=== PATIENT | male | born 1990 | race Caucasian/White ===

== ENCOUNTER 2017-01-22 00:31 | Emergency (ER) | payer OTHER ==
[~2017-01-22] VITALS: Ht 172.7 cm; Wt 64.5 kg
[2017-01-22 00:38] VITALS: Ht 172.7 cm; Wt 64.5 kg
[2017-01-22] MEDS ORDERED: IBUP-1542 PO (03:01)
--- NOTE | 2017-01-22 03:07 | ERD ---
ER Documentation Chief Complaint Date/Time DATE: 01/22/17 TIME: 03:03 Chief Complaint r ring finger cut on knife in sink HPI This is a 18-year-old male presents to the ER after he cut his right ring finger with a knife earlier today while he was washing dishes. Patient states that around 11 PM he began to feel pain to his finger and is aware that he may need stitches. Patient denies any numbness or tingling to his fingers he does have a recent tetanus shot. Bleeding was controlled before arriving to the ER. ROS 12 point review of systems was done, all negative except per HPI. Medications Home Meds Active Scripts Ibuprofen* (Motrin*) 600 Mg Tab, 600 MG PO Q6, #30 TAB Prov:NUHA COLLIER Louise 01/22/17 Allergies Allergies: Coded Allergies: No Known Allergy (Unverified , 01/22/17) PMhx/Soc Medical and Surgical Hx: pt denies Medical Hx, pt denies Surgical Hx History of Surgery: No (DENIES MEDICAL AND SURGICAL HX.) Hx Alcohol Use: No Hx Substance Use: No Hx Tobacco Use: No Smoking Status: Never smoker Physical Exam Vitals Vital Signs Date Time Temp Pulse Resp B/P Pulse Ox O2 Delivery O2 Flow Rate FiO2 01/22/17 00:38 98.1 72 18 130/69 99 Physical Exam GENERAL: The patient is well developed and appropriate for usual state of health , in no apparent distress. HEENT: Atraumatic. . CHEST: Clear to auscultation bilaterally. There are no rales, wheezes or rhonchi. HEART: Regular rate and rhythm. No murmurs, clicks, rubs or gallops. EXTREMITIES: Right hand is without obvious asymmetry or deformity when compared to the left hand. There is no swelling, erythema or atrophy. There is a small 0.5 cm abrasion to the second distal finger. Normal extension and flexion of fingers. FDS and FDP are intact against resistance. No focal fullness, throbbing pain, swelling of fingertips. Patient not tender to palpation to the MCP, DIP, or PIP joint of the 2nd digit. NEURO: Alert and oriented. Procedures/MDM This is a 26-year-old male presents to the ER with an abrasion to his second right digit. Dermabond was applied to the area without any complications. Patient has full range of motion of his finger and he is neurovascularly intact. Will be sent with ibuprofen. Needs to follow-up with his primary care doctor within 1-2 days or return to ER sooner if symptoms worsen. My medical decision making shared with the patient understands and agrees with plan. Departure Diagnosis: Primary Impression: Abrasion Condition: Stable Patient Instructions: Abrasion Additional Instructions: Call your primary care doctor TOMORROW for an appointment during the next 1-2 days.See the doctor sooner or return here if your condition worsens before your appointment time. NUHA COLLIER Jan 22, 2017 03:07
== END 2017-01-22 03:28 | disposition home or self-care (01) ==
LOC: FTE 00:31
DX: S61.214A Laceration without foreign body of right ring finger without damage to nail, initial encounter (principal); W26.0XXA Contact with knife, initial encounter; Y92.9 Unspecified place or not applicable